=== PATIENT | female | born 2000 | race Hispanic/Latino ===

== ENCOUNTER 2022-03-03 03:23 | Emergency (ER) | payer OTHER ==
[2022-03-03 04:19] LABS: Absolute Lymphocytes (CBC) 1.1 K/uL (0.7-4.9); Hematocrit 39.5 % (36.0-45.0); MCV 78.7 fL (80-100); MPV 7.5 fL (7.6-11.3); RBC Red Blood Cell Count 5.02 M/uL (3.86-4.86)
[2022-03-03] MEDS ORDERED: NA CHLORIDE 0.9% 1,000 ML ONE (04:23)
[2022-03-03 04:28] LABS: Urine Bacteria <20 /HPF (<20); Urine Mucus 1+ /HPF (None Seen); Urine RBC <5 /HPF (None Seen)
[2022-03-03 04:34] LABS: Albumin 4.2 g/dL (3.4-5.0); Bilirubin Total 0.3 mg/dL (0.2-1.0); Protein, Total 8.7 g/dL (6.4-8.2)
[2022-03-03 04:55] LABS: Urine Blood Trace-lysed (Negative); Urine Glucose Negative (Negative); Urine Protein Negative (Negative); Urine Specific Gravity >=1.030 (1.005-1.030)
--- NOTE | 2022-03-03 05:55 | EDPHYS ---
Physician Documentation [facility] Name: Anna Herring Age: 21 yrs Sex: Female : 2000 Arrival Date: 03/03/2022 Time: 03:29 Bed 18 Private MD: ED Physician Milind Chang HPI: 03/03 04:09 This 21 yrs old Female presents to ER via Unassigned with complaints of rn Dizziness, Nausea, Pelvic Pain. 04:09 The patient presents with abdominal pain in the lower abdomen. rn 04:09 Onset: The symptoms/episode began/occurred 3 day(s) ago. The symptoms do not radiate. rn Associated signs and symptoms: Pertinent positives: nausea and vomiting, Pertinent negatives: blood in stools, chest pain, diarrhea, fever, hematuria, shortness of breath, vaginal discharge, vomiting, vomiting blood. The symptoms are described as crampy. Modifying factors: The symptoms are alleviated by nothing, the symptoms are aggravated by nothing. Severity of pain: At its worst the pain was moderate in the emergency department the pain has improved. The patient has not experienced similar symptoms in the past. The patient has not recently seen a physician. Pt reports 2-3 days of lower abd pain, preceded by subjective fever/cough/congestion that began last week. NO longer febrile. No diarrhea. No vaginal discharge. Reports threw up twice, and feels lightheaded/dizzy. No chest pain/sob. No blood in stool. . 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 - Family history:: not pertinent. - Hospitalizations: : No recent hospitalization is reported. ROS: 04:09 Constitutional: Negative for chills, and weight loss, Eyes: Negative for injury, pain, rn redness, and discharge, Neck: Negative for injury, pain, and swelling, Cardiovascular: Negative for chest pain, palpitations, and edema, Respiratory: Negative for shortness of breath, cough, wheezing, and pleuritic chest pain, Abdomen/GI: + lower abd pain and nausea/vomiting Back: Negative for injury and pain, : Negative for injury, bleeding, discharge, and swelling, MS/Extremity: Negative for injury and deformity, Skin: Negative for injury, rash, and discoloration, Neuro: Negative for headache, weakness, numbness, tingling, and seizure. Exam: 04:09 Constitutional: This is a well developed, well nourished patient who is awake, alert, rn and in no acute distress. Head/Face: Normocephalic, atraumatic. Eyes: Periorbital areas with no swelling, redness, or edema. ENT: dry MM Cardiovascular: Regular rate and rhythm. No pulse deficits. Respiratory: No increased work of breathing, no retractions or nasal flaring. Abdomen/GI: soft, mild LLQ tenderness, no rebound Skin: Warm, dry MS/ Extremity: Pulses equal, no cyanosis. Neuro: Awake and alert, GCS 15 Vital Signs: 03:55 BP 118 / 82; Pulse 86; Resp 16; Pulse Ox 100% ; Weight 64.86 kg; Height 5 ft. (152.40 ja4 cm); Pain 4/10; 04:29 BP 118 / 82; Pulse 86; Resp 16; Pulse Ox 100% ; Weight 63.5 kg; Height 5 ft. 0 in. ja4 (152.40 cm); Pain 4/10; 04:29 Body Mass Index 27.34 (63.50 kg, 152.40 cm) ja4 MDM: 03:39 Patient medically screened. rn 05:52 Differential diagnosis: appendicitis, diverticulitis, Ectopic , gastritis, rn non-specific abd pain, Pyelonephritis, Ureterolithiasis, urinary tract infection, COVID. Data reviewed: vital signs, nurses notes, lab test result(s), radiologic studies, CT scan, and as a result, I will discharge patient. Counseling: I had a detailed discussion with the patient and/or guardian regarding: the historical points, exam findings, and any diagnostic results supporting the discharge/admit diagnosis, lab results, radiology results, the need for outpatient follow up, to return to the emergency department if symptoms worsen or persist or if there are any questions or concerns that arise at home. Response to treatment: the patient's symptoms have mildly improved after treatment, and as a result, I will discharge patient. Special discussion: I discussed with the patient/guardian in detail that at this point there is no indication for admission to the hospital. It is understood, however, that if the symptoms persist or worsen the patient needs to return immediately for re-evaluation. 03/03 03:54 Order name: CBC with Diff; Complete Time: 04:34 rn 03/03 03:54 Order name: CMP; Complete Time: 05:17 rn 03/03 03:54 Order name: Lipase; Complete Time: 05:17 rn 03/03 03:54 Order name: Urine Microscopic Only; Complete Time: 04:34 rn 03/03 03:54 Order name: SARS-COV-2 RT PCR (Document "Date of Onset" if Symptomatic); Complete Time: rn 05:17 03/03 03:54 Order name: CT Abd/Pelvis - IV Contrast Only rn 03/03 03:54 Order name: IV Saline Lock; Complete Time: 04:13 rn 03/03 03:54 Order name: Labs collected and sent; Complete Time: 04:13 rn 03/03 04:41 Order name: Urine Test (obtain specimen); Complete Time: 04:54 [facility] 03/03 04:41 Order name: Urine Dipstick-Ancillary (obtain specimen); Complete Time: 04:54 [facility] 03/03 04:56 Order name: Urine Dipstick-Ancillary; Complete Time: 05:17 EDMS Administered Medications: 04:16 Drug: NS 0.9% 1000 ml Route: IV; Rate: 1 bolus; Site: right antecubital; ja4 Disposition Summary: 03/03/22 05:54 Discharge Ordered Location: Home rn Problem: new rn Symptoms: have improved rn Condition: Stable rn Diagnosis - SARS-associated coronavirus as the cause of diseases classified elsewhere rn - Lower abdominal pain, unspecified rn Followup: rn - With: Private Physician - When: As needed - Reason: Recheck today's complaints, Re-evaluation by your physician Discharge Instructions: - Discharge Summary Sheet rn - Abdominal Pain, Adult rn - COVID-19 rn - Viral Illness, Adult rn Forms: - Medication Reconciliation Form rn - Thank You Letter rn - Antibiotic rn renal - Prescription Opioid Use rn Signatures: Dispatcher [employer] EDMilind Jenkins MD MD rn [place], MyKena 2 Justyn Fox, RN RN [email or web address]
--- NOTE | 2022-03-03 05:55 | ER ---
Nurse's Notes [facility] Name: Anna Herring Age: 21 yrs Sex: Female : 2000 Arrival Date: 03/03/2022 Time: 03:29 Bed 18 Private MD: Diagnosis: SARS-associated coronavirus as the cause of diseases classified elsewhere;Lower abdominal pain, unspecified Presentation: 03/03 03:55 Chief complaint: Patient states: abd pain, n/v. Coronavirus screen: Client denies ja4 travel out of the [place] in the last 14 days. At this time, the client does not indicate any symptoms associated with coronavirus-19. Ebola Screen: Patient denies exposure to infectious person. Patient denies travel to an Ebola-affected area in the 21 days before illness onset. Initial Sepsis Screen: Does the patient meet any 2 criteria? Does the patient have a suspected source of infection? No. Patient's initial sepsis screen is negative. Risk Assessment: Do you want to hurt yourself or someone else? Patient reports no desire to harm self or others. Onset of symptoms was February 28, 2022. 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 - Family history:: not pertinent. - Hospitalizations: : No recent hospitalization is reported. Screenin:44 Abuse screen: Denies threats or abuse. Nutritional screening: No deficits noted. ja4 Tuberculosis screening: No symptoms or risk factors identified. Fall Risk None identified. Assessment: 03:43 General: Appears in no apparent distress. uncomfortable, Behavior is calm, cooperative, ja4 appropriate for age. Pain: Complains of pain in pelvis Pain currently is 5 out of 10 on a pain scale. Pain began 2-3 days ago. Is continuous. GI: No deficits noted. : Reports cramping, lower quadrant(s). 04:19 Reassessment: negative for . ja4 Vital Signs: 03:55 BP 118 / 82; Pulse 86; Resp 16; Pulse Ox 100% ; Weight 64.86 kg; Height 5 ft. (152.40 ja4 cm); Pain 4/10; 04:29 BP 118 / 82; Pulse 86; Resp 16; Pulse Ox 100% ; Weight 63.5 kg; Height 5 ft. 0 in. ja4 (152.40 cm); Pain 410; 04:29 Body Mass Index 27.34 (63.50 kg, 152.40 cm) ja4 ED Course: 03:29 Patient arrived in ED. ja2 03:38 Justyn Fox, RN is Primary Nurse. ja4 03:39 Milind Chang MD is Attending Physician. rn 03:44 Bed in low position. Call light in reach. Adult w/ patient. ja4 03:44 No provider procedures requiring assistance completed. ja4 04:10 Inserted saline lock: 20 gauge in right antecubital area, using aseptic technique. ja4 Blood collected. 04:17 SARS-COV-2 RT PCR (Document "Date of Onset" if Symptomatic) Sent. ja4 04:28 Triage completed. ja4 05:32 CT Abd/Pelvis - IV Contrast Only In Process Unspecified. EDMS 06:07 IV discontinued, intact, bleeding controlled, No redness/swelling at site. Pressure ja4 dressing applied. Administered Medications: 04:16 Drug: NS 0.9% 1000 ml Route: IV; Rate: 1 bolus; Site: right antecubital; ja4 Medication: 03:44 VIS not applicable for this client. ja4 Outcome: 05:54 Discharge ordered by . rn 06:07 Discharged to home ambulatory. ja4 06:07 Condition: good 06:07 Discharge instructions given to patient, family, Instructed on discharge instructions, follow up and referral plans. medication usage, Demonstrated understanding of instructions, follow-up care, medications. 06:09 Patient left the ED. ja4 Signatures: Dispatcher [employer] EDMS Milind Chang MD MD rn Alexander, Jessica ja2 Justyn Fox, LORENA trevizo
[2022-03-03 07:21] VITALS: BP 118/82; O2SAT 100
--- NOTE | 2022-03-03 14:41 | RAD REPORT ---
EXAM DESCRIPTION: CT - Abdomen Pelvis W Contrast - 03/03/2022 7:09 am ADDENDUM #1 Addendum is made upon request for further findings regarding the reproductive organs: No focal abnormality of the reproductive organs. No adnexal or pelvic masses. Trace free fluid in the posterior cul-de-sac, could be physiologic. Electronically signed by: Shamar Sky MD 03/03/2022 6:18 AM CDT End of Addendum EXAM DESCRIPTION: Abdomen Pelvis W Contrast CLINICAL HISTORY: 21 years Female lower abd pain COMPARISON: None TECHNIQUE: CT of the abdomen and pelvis with intravenous contrast. All CT scans at this facility use dose modulation, iterative reconstruction, and/or weight based dosi ng when appropriate to reduce radiation dose to as low as reasonably achievable. FINDINGS: Exam degraded by motion. Lower thorax: Lung bases are clear Abdomen: Stomach: Within normal limits Liver: No focal lesions. No intrahepatic ductal distention. Gallbladder: Nondistended Pancreas: Within normal limits Spleen: Within normal limits Right kidney: No hydronephrosis. No focal lesion. Left kidney: No hydronephrosis. No focal lesion. Adrenal glands: Within normal limits Vascular structures: Within normal limits Nodes: No lymphadenopathy by size criteria Pelvis: Small bowel: No significant distention. Appendix: Within normal limits Colon: No distention or acute pericolonic edema. Peritoneum: No free air. Small of free fluid in the pelvis. Bones: No acute bone findings. Bladder: Unremarkable. No pelvic mass or adenopathy. Soft tissues: Small fat-containing umbilical hernia. IMPRESSION: 1. Exam degraded by motion. 2. No acute abdominopelvic findings. 3. Small amount of free fluid in the pelvis, could be physiologic. Electronically signed by: Shamar Sky MD 03/03/2022 5:47 AM CDT Due to temporary technical issues with the PACS/Fluency reporting system, reports are being signed by the in house radiologists without review as a courtesy to insure prompt reporting. The interpreting radiologist is fully responsible for the content of the report.
== END 2022-03-03 06:09 | disposition home or self-care (01) ==
LOC: ER 03:23
DX: U07.1 COVID-19 (principal)
CPT/HCPCS: 85025; 36415; 83690; 80053; 74177; 99284; U0003; Q9967; J7030; 81003; 81015

== ENCOUNTER 2023-07-10 09:16 | Day surgery (SDC) | payer OTHER ==
[2023-07-10] MEDS ORDERED: Ringers Lactate 1,000 ML IV ONE (09:53)
[2023-07-10 10:00] LABS: Absolute Lymphocytes (CBC) 1.2 K/uL (0.7-4.9); Hematocrit 39.6 % (36.0-45.0); Lymphocytes % 19.1 % (15.3-44.8); MCV 80.6 fL (80-100); MPV 7.6 fL (7.6-11.3); Platelets 317 thou/uL (152-406); RBC Red Blood Cell Count 4.92 M/uL (3.86-4.86)
[2023-07-10 10:10] LABS: Potassium 3.2 mEq/L (3.5-5.1)
[2023-07-10 10:35] VITALS: O2SAT 100
[2023-07-10] MEDS ORDERED: LIDOCAINE 2% MPF 5 ML VIAL ONE (10:35)
[2023-07-10] MEDS ORDERED: ONDANSETRON 4 MG/2 ML VIAL ONE (10:35)
[2023-07-10] MEDS ORDERED: MIDAZOLAM HCL 2 MG/2 ML INJ ONE (10:36)
[2023-07-10] MEDS ORDERED: FENTANYL CITR 100 MCG/2 ML ONE (10:36)
[2023-07-10] MEDS ORDERED: propofoL 200 MG/20 ML VIAL IV ONE (10:36)
[2023-07-10] MEDS ORDERED: CEFAZOLIN SODIUM 1 GM/VIAL ONE (11:11)
[2023-07-10] MEDS ORDERED: KETOROLAC 30 MG/ML INJ ONE (11:18)
[2023-07-10] MEDS ORDERED: dexAMETHasone 4 MG/ML VIAL ONE (11:18)
--- NOTE | 2023-07-10 11:32 | P.BOP ---
Preoperative diagnosis: necrotic traumatic wound right thumb with hematoma and partial nail avulsio Postoperative diagnosis: same Primary procedure: 1.Debridement subQ necrotic traumatic wound right thumb Secondary procedure: 2. Hematoma evacuation Other procedure(s): 3. nail removal Estimated blood loss: <5cc Specimen: necrotic tissue Findings: same Anesthesia: General Complications: None Transferred to: Recovery Room Condition: Good
[2023-07-10 13:50] VITALS: BP 113/66; TEMP 97.9
--- NOTE | 2023-07-24 14:57 | DS ---
Date of Discharge: 07/10/2023 Diagnosis: Traumatic wound with necrotic wound on the right thumb. Procedure: Subcutaneous debridement of the necrotic wound in the right thumb with hematoma evacuatio n and nail removal. Disposition: Home. Plan: The patient will be using a mupirocin daily. Keep the area clean. Follow up in our office in a week. REAGAN/FLORA Voice ID: [id number] Report ID: [id number]
--- NOTE | 2023-07-24 14:57 | OP ---
Date of Procedure: 07/10/2023 Surgeon: Manpreet Burnham MD Preoperative Diagnosis: Necrotic traumatic wound, right thumb, status post crush injury with hematom a and partial nail avulsion. Postoperative Diagnosis: Necrotic traumatic wound, right thumb, status post crush injury with hemato ma and partial nail avulsion. Procedure: Subcutaneous debridement of the necrotic traumatic wound on the right thumb and hematoma evacuation and nail removal. Estimated Blood Loss: Less than 5 cc. Specimen: Necrotic tissue. Findings: As above. Anesthesia: General plus local. Indication: This is a case of a female, who unfortunately had a crushing injury with a door, develop ing this hematoma, partially lifting the nail, developing an ulcer in that region and she has it ther e for more than a week. It is giving her pain and still bleeding, so she wants that clean up and tanner rided since she has necrotic tissue. The benefits, alternatives, and risks of a debridement with trevin cuation of hematoma and nail removal were fully explained, which include, but not limited to, infecti on, bleeding, damage to adjacent structures, anesthesia complications, nonhealing wound, MO, and even . She also understands this may not relieve any symptoms and she might need more than one surg ical intervention. She understands also her nail may never grow back normally. We previously saw an x-ray of that hand and it shows no fractures and she is also at risk of osteomyelitis in the future. She understands that. Description Of Procedure: The patient was brought to the operating room, placed in supine position. Anesthesia was done without complication. A time-out was called. The right hand was prepped and dr aped in the usual sterile fashion. Local anesthesia was applied. With a blade, we proceeded to do d ebridement of the necrotic tissue. This allowed access to hematoma. The nail also had to be removed . It was partially avulsed and underneath had the active bleeding even a week after and so we were a ble to just control that bleeding. Removed devitalized tissue, removed the nail without creating hem atoma and then the area was left to close by secondary intention with gauze on top. Patient tolerate d the procedure well. Sponge counts and instrument counts were correct. Patient sent to Recovery in stable condition. REAGAN/MODL Voice ID: [id number] Report ID: [id number]
== END 2023-07-10 12:45 | disposition home or self-care (01) ==
LOC: OR 09:16
PROVIDERS: ATTEND Surgery
PROC: 0HTQXZZ Resection of Finger Nail, External Approach (ICD-10-PCS; 2023-07-10)
PROC: 0JDJ0ZZ Extraction of Right Hand Subcutaneous Tissue and Fascia, Open Approach (ICD-10-PCS; principal; 2023-07-10 12:00)
DX: S61.101A Unspecified open wound of right thumb with damage to nail, initial encounter (principal); S60.111A Contusion of right thumb with damage to nail, initial encounter; I96 Gangrene, not elsewhere classified
CPT/HCPCS: 11730; 87070; 85025; 80048; 36415; 87205; 81025; 88304; 88311; 87075; 11042; J2704; J1100; J2001; J2250; J3010; J2405; J7120; J0690